=== PATIENT | male | born 1990 | race Caucasian/White ===

== ENCOUNTER 2023-12-20 07:20 | Outpatient (OUT) | payer OTHER, SELFPAY ==
[2023-12-20 07:53] LABS: Basophils Absolute Auto 0.1 10^3/uL (0.0-0.1); Basophils Percent Auto 0.9 % (0.2-2.0); Eosinophils Absolute Auto 0.5 10^3/uL (0.0-0.7); Eosinophils Percent Auto 6.3 % (0.9-7.0); Hematocrit 46.8 % (42.0-54.0); Immature Granulocytes Abs Auto 0.02 10^3/uL (0.00-0.03); Immature Granulocytes Pct Auto 0.3 % (0.0-0.5); Lymphocytes Absolute Auto 2.8 10^3/uL (1.2-3.8); Lymphocytes Percent Auto 36.3 % (20.5-60.0); Mean Corpuscular HGB Conc 34.2 g/dL (29.9-35.2); Mean Corpuscular Hemoglobin 30.4 pg (25.9-34.0); Mean Corpuscular Volume 88.8 fL (80.0-94.0); Mean Platelet Volume 9.9 fL (9.5-13.5); Monocytes Absolute Auto 0.6 10^3/uL (0.3-0.8); Neutrophils Absolute Auto 3.7 10^3/uL (1.4-6.5); Neutrophils Percent Auto 48.2 % (43.0-75.0); Platelet Count 279 10^3/uL (150-450); Red Blood Count 5.27 10^6/uL (4.70-6.10); Red Cell Distribution Width 11.9 % (11.0-15.0); White Blood Count 7.8 10^3/uL (4.0-11.0)
[2023-12-20 08:18] LABS: Alanine Aminotransferase 38 U/L (16-63); Albumin Level 3.8 g/dL (3.4-5.0); Alkaline Phosphatase 76 U/L (46-116); Anion Gap 10.5; Aspartate Amino Transferase 18 U/L (15-37); BUN Creatinine Ratio 14.9; Bilirubin Total 0.3 mg/dL (0.2-1.0); Calcium 9.3 mg/dL (8.5-10.1); Carbon Dioxide 29.9 mmol/L (21.0-32.0); Chloride 102 mmol/L (98-107); Chol HDL Ratio 5.2; Cholesterol 173 mg/dL (<=200); Estimated GFR (African America >60 (>=60); Estimated GFR (Non-African Ame >60 (>=60); Globulin 3.9 g/dL; Glucose 110 mg/dL (74-106); HDL Cholesterol 33 mg/dL (40-60); Potassium 4.4 mmol/L (3.5-5.1); Sodium 138 mmol/L (136-145); Thyroid Stimulating Hormone 1.154 uIU/mL (0.358-3.740); Total Protein 7.7 g/dL (6.4-8.2); Triglycerides 111 mg/dL (<=150); VLDL CHOLESTEROL 22.2 mg/dL
== END 2023-12-20 07:21 | disposition home or self-care (01) ==
LOC: LAB 07:23
PROVIDERS: PCP Nurse Practitioner; Visit Provider Nurse Practitioner
DX: Z00.00 Encounter for general adult medical examination without abnormal findings (principal)
CPT/HCPCS: 36415; 80053; 80061; 84443; 85025

== ENCOUNTER 2023-12-27 21:00 | Outpatient (OUT) | payer OTHER, SELFPAY ==
--- OUTSIDE RECORDS SUMMARY | 2023-12-29 08:19 | XMS_ITS | CCD ---
Author Organization [facility] Care Team Providers Care Car Pre Cooler Name Role Phone REBECCA RICHTER Attending Unavailable FRED MERCEDES Consulting Unavailable MISC, DOCTOR Primary Care Unavailable REBECCA RICHTER Admitting Unavailable REBECCA RICHTER Consulting Unavailable Haritha, CONDUCTOR AND ENGINEER-BC Kira Minaya Emergency Provider MD Sharon Thomas Primary Care Provider Kira Mg Attending Unavailable Kira Mg Admitting Unavailable Sharon Thomas Primary Care Unavailable Nancy Jj Attending Unavailable ParvizNancy Attending Unavailable ParvizNancy Attending Unavailable ParvizNancy Attending Unavailable ParvizNancy Attending Unavailable Medications Current Medications Medication Drug Class(es) Dates Sig (Normalized) Sig (Original) ibuprofen 800 mg oral tablet (1 source) Nonsteroidal Anti-inflammatory Drug Start: 06-04-2022 take 800 mg by mouth every six hours Ibuprofen Active 800 MG PO Q6H June 04, 2022 12:00am 24 hr venlafaxine 150 mg extended release oral capsule (1 source) Serotonin and Norepinephrine Reuptake Inhibitor Start: 06-04-2022 take 1 capsule by mouth once daily Venlafaxine (Effexor Xr) 150 mg capsule,extended release 24hr Active 150 MG PO Daily June 04, 2022 12:00am Problems Active Problems Problem Classification Problem Date Documented Da te Episodic/Chronic External cause codes: Fall (1 source) Fall on same level from slipping, tripping and stumbling without subsequent striking against object, initial encounter; Translations: [FALL SAME LVL SLIP NO STRK OBJ INIT] Onset: 04-18-2020 Other connective tissue disease (3 sources) Pain in left hand; Translations: [PAIN IN LEFT HAND] Onset: 04-14-2020 Episodic Superficial injury; contusion (2 sources) Contusion of left hand, initial encounter; Translations: [Abrasion, left thigh, initial encounter] Onset: 04-18-2020 Episodic Unclassified (1 source) Unspecified injury of unspecified ankle, initial encounter; Translations: [Unspecified injury of unspecified ankle, initial encounter] Onset: 06-04-2022 Past or Other Problems Problem Classification Problem Date Documented Da te Episodic/Chronic Unclassified (1 source) Ankle sprain and strain 06-04-2022 Results Test Name Value Interpretation Reference Range Facil ity Family Medicine Office/Clini c Noteon 12-10-2023 Family Medicine Office/Clinic Note Family Medicine Office/Clinic Note HPI Staff Celeste is a 33 year old male presenting for follow up ADHD and meds Has been on Adderall 7.5mg for ADHD _ stopped taking this around [place] Wellbutrin stopped about a month ago when he ran out of refills Stopped taking Adderall because he thought it was making his depression worse, he has been questioned if he has been dx with bipolar, and coworkers History of Present Illness pt presents today to discuss worsening depression, anxiety, sleep disturbances Review of Systems PHQ Score Initial Depression Screen Score: 0 SCORE Physical Exam Vitals & Measurements T: 36.4 ?C(Temporal Artery) HR: 102(Peripheral) RR: 22 BP: 142/86 SpO2: 96% HT: 68 in HT: 172.6 cm WT: 111.8 kg WT: 245.96 lb BMI: 37.53 General: alert, no acute distress ENMT: oral mucosa moist, no pharyngeal erythema or exudate Cardiovascular: regular rate and rhythm, normal peripheral perfusion Respiratory: Lungs CTA, respirations non labored Extremities: no deformity, no trauma Neurological: oriented x 4, LOC appropriate for age, CN II-XII intact, motor strength equal & normal bilaterally, speech normal Assessment/Plan 1. Bipolar disorder (F31.9: Bipolar disorder, unspecified) pt presents today for c/o worsening mood swings, depression, anxiety. discussed medication options. would like to try Abilify. pt will return in 4 weeks to monitor symptoms. pt is also due for annual wellness labs. RTC 4 weeks Ordered: aripiprazole, 5 mg = 1 tab(s), Oral, Daily, # 30 tab(s), Refills(s) 0, Pharmacy: [id number], 172.6, cm, 07/31/24 15:35:00 EDT, Height/Length Dosing, 111.8, kg, 12/10/23 15:35:00 EDT, Weight Dosing 2. Headache (R51.9: Headache, unspecified) see below 3. Daytime somnolence (R40.0: Somnolence) will order sleep study. pt will sleep 10 hours and still wake up tired. order sent to [facility] 4. Smoker (F17.200: Nicotine dependence, unspecified, uncomplicated) pt has been trying to quit but has a lot going on with sick at home Ordered: aripiprazole, 5 mg = 1 tab(s), Oral, Daily, # 30 tab(s), Refills(s) 0, [id number], 172.6, cm, 12/10/23 15:35:00 EDT, Height/Length Dosing, 111.8, kg, 12/10/23 15:35:00 EDT, Weight Dosing busPIRone, 10 mg = 1 tab(s), Oral, Daily, # 30 tab(s), Refills(s) 1, Pharmacy: [facility] #[id number], 115.4, kg, 12/09/22 15:15:00 EDT, Weight Dosing lisdexamfetamine, 30 mg, 1 cap(s), Oral, qAM, 30 cap(s), Refill(s) 0, [facility]pharm[facility] #[id number], 115.4, kg, 12/09/22 15:15:00 EDT, Weight Dosing 5. BMI 37.0-37.9, adult (Z68.37: Body mass index [BMI] 37.0-37.9, adult) bmi education given Ordered: aripiprazole, 5 mg = 1 tab(s), Oral, Daily, # 30 tab(s), Refills(s) 0, Pharmacy: [facility]/pharmacy #[id number], 172.6, cm, 12/10/23 15:35:00 EDT, Height/Length Dosing, 111.8, kg, 12/10/23 15:35:00 EDT, Weight Dosing Orders: amphetamine-dextroamphet amine, 7.5 mg, 1 tab(s), Oral, qAM, 30 tab(s), Refill(s) 0, [id number], 172.6, cm, 12/10/22 7:50:00 EDT, Height/Length Dosing, 115.4, kg, 12/09/22 15:15:00 EDT, Weight Dosing venlafaxine, 150 mg = 1 cap(s), Oral, Daily, 3 Refill(s), TAKE 1 CAPSULE(150 MG) BY MOUTH DAILY, # 90 cap(s), Refills(s) 3, Pharmacy: [facility]/pharmacy #[id number], 172.6, cm, 12/10/22 7:50:00 EDT, Height/Length Dosing, 115.4, kg, 12/09/22 15:15:00 EDT, Weight Dosing Follow-up No qualifying data available Problem List/Past Medical History Ongoing ADHD Cough Daytime somnolence WYATT (generalized anxiety disorder) Headache Left otitis media Historical No qualifying data Procedure/Surgical History T and A (tonsillectomy and adenoidectomy) postoperative education. Medications Abilify 5 mg Tab, 5 mg= 1 tab(s), Oral, Daily Allergies No Known Allergies Social History Alcohol Current, Beer, 1-2 times per year, Alcohol use interferes with work or home: No. Drinks more than intended: No. Others hurt by drinking: No. Ready to change: No. Household alcohol concerns: No., 12/09/2022 Tobacco 10 or more cigarettes (1/2 pack or more)/day in last 30 days, chew Tobacco Use:. Cigarettes, Oral, Household tobacco concerns: No., 12/10/2023 Family History Acute myocardial infarction: Mother. Anxiety: Mother. Cancer: Grandparent. Depression: Mother. Diabetes mellitus type 2: Mother. Normal [facility] Comment on above: Result Comment: Electronically Signed By : Nancy Melton\.guillermo\Date and Time Signed: 12/10/23 16:40 EDT Ambulatory Visit Summaryon 0 07-28-2023 Ambulatory Visit Summary CELESTE CEVALLOS :1990 Visit Date:07/28/2023 Ambulatory Visit Instructions Your Diagnosis Left otitis media Cough BMI 37.0-37.9, adult Class 1 obesity due to excess calories in adult Smoker Your Care Team Attending Physician - Nancy Melton Primary Care Physician - Nancy Melton This Is Your Medications List amoxicillin-clavulanate (Augmentin 875 mg oral tablet) amphetamine-dextroamphet amine (Adderall 7.5 mg oral tablet) busPIRone (busPIRone 10 mg Tab) lisdexamfetamine (Vyvanse 30 mg oral capsule) methylPREDNISolone (Medrol 4 mg Tab) venlafaxine (venlafaxine 150 mg Cap-ER) Procedures Performed T and A (tonsillectomy and adenoidectomy) postoperative education. Discharge Vitals Temperature (Temporal Artery) 37.5 ?C Heart Rate (Peripheral) 106 Respiratory Rate 18 Blood Pressure 132/80 Height 172.6 cm Height 68 in Weight 112.9 kg Weight 248.38 lb BMI 37.9 Medications What How Much When Why Instructions New amoxicillin-clavulanate (Augmentin 875 mg oral tablet) 1 Tablets By Mouth Every 12 hours Left otitis media Cough BMI 37.0-37.9, adult Class 1 obesity due to excess calories in adult Smoker Duration: 7 Days Pickup at [facility] #[id number] New methylPREDNISolone (Medrol 4 mg Tab) 1 Packets By Mouth As Directed Left otitis media Cough BMI 37.0-37.9, adult Class 1 obesity due to excess calories in adult Smoker Duration: 6 Days as directed on package labeling Pickup at [facility] #[id number] Unchanged amphetamine-dextroamphet amine (Adderall 7.5 mg oral tablet) 1 Tablets By Mouth Once a day (in the morning) Unchanged busPIRone (busPIRone 10 mg Tab) 1 Tablets By Mouth Every day ADHD WYATT (generalized anxiety disorder) BMI 38.0-38.9,adult Smoker Chews tobacco Unchanged lisdexamfetamine (Vyvanse 30 mg oral capsule) 1 Capsules By Mouth Once a day (in the morning) ADHD WYATT (generalized anxiety disorder) BMI 38.0-38.9,adult Smoker Chews tobacco Unchanged venlafaxine (venlafaxine 150 mg Cap-ER) 1 Capsules By Mouth Every day 3 Refill(s), TAKE 1 CAPSULE(150 MG) BY MOUTH DAILY Pharmacy Information [facility]/pharmacy #[id number]: [address], [place] [phone] Allergies No Known Allergies Problems Ongoing - Any problem that you are currently receiving treatment for. ADHD Cough WYATT (generalized anxiety disorder) Left otitis media Patient Survey You may receive a survey via text or e-mail asking about your office visit. Please share your experience with us by completing your survey. We appreciate your feedback and thank you for choosing us for your care. Mis Rivas [facility] Medicine Office/Clini c Noteon 07-28-2023 Family Medicine Office/Clinic Note HPI Staff Patient presents for acute visit. _Respiratory C/O: Duration: friday Body aches: yes Chest congestion: yes Chills: yes Cough: yes Ear complaints: yes Eye itching/watering: yes Fever: yes Headache: yescomes and goes Nasal congestion: yes Nasal discharge: yes clear Poor appetite: yes Reduced activity: yes Sinus pain/pressure: yes Sneezing: yes Sputum production: yesgreen Wheezing: yes Ill contacts: yes Remedies tried: theraflu, mucinex, acetaminophen based_vicks shower bombs _ flu: refused History of Present Illness pt presents today for c/o cough, fever, chills Review of Systems PHQ Score Initial Depression Screen Score: 2 SCORE Physical Exam Vitals & Measurements T: 37.5 ?C(Temporal Artery) HR: 106(Peripheral) RR: 18 BP: 132/80 SpO2: 98% HT: 68 in HT: 172.6 cm WT: 112.9 kg WT: 248.38 lb BMI: 37.9 General: alert, no acute distress ENMT: oral mucosa moist, no pharyngeal erythema or exudate Cardiovascular: regular rate and rhythm, normal peripheral perfusion Respiratory: Lungs CTA, respirations non labored Extremities: no deformity, no trauma Neurological: oriented x 4, LOC appropriate for age, CN II-XII intact, motor strength equal & normal bilaterally, speech normal Assessment/Plan 1. Left otitis media (H66.92: Otitis media, unspecified, left ear) lef tm and canal red. full of clear fluid will order medrol dose pack and augmentin Ordered: amoxicillin-clavulanate, = 1 tab(s), Oral, q12hr, X 7 day(s), # 14 tab(s), Refills(s) 0, [id number], 172.6, cm, 07/28/23 12:51:00 EDT, Height/Length Dosing, 112.9, kg, 07/28/23 12:51:00 EDT, Weight Dosing methylPREDNISolone, = 1 packet(s), Oral, As Directed, as directed on package labeling, X 6 day(s), # 21 tab(s), Refills(s) 0, [id number], 172.6, cm, 07/28/23 12:51:00 EDT, Height/Length Dosing, 112.9, kg, 07/28/23 12:51:00 EDT, Weight Dosing 2. Cough (R05.9: Cough, unspecified) cough congestion since Friday. flu and covid both negative Ordered: amoxicillin-clavulanate, = 1 tab(s), Oral, q12hr, X 7 day(s), # 14 tab(s), Refills(s) 0, [id number], 172.6, cm, 07/28/23 12:51:00 EDT, Height/Length Dosing, 112.9, kg, 07/28/23 12:51:00 EDT, Weight Dosing methylPREDNISolone, = 1 packet(s), Oral, As Directed, as directed on package labeling, X 6 day(s), # 21 tab(s), Refills(s) 0, [id number], 172.6, cm, 07/28/23 12:51:00 EDT, Height/Length Dosing, 112.9, kg, 07/28/23 12:51:00 EDT, Weight Dosing 3. BMI 37.0-37.9, adult (Z68.37: Body mass index [BMI] 37.0-37.9, adult) BMI education complete Ordered: amoxicillin-clavulanate, = 1 tab(s), Oral, q12hr, X 7 day(s), # 14 tab(s), Refills(s) 0, Pharmacy: [facility]/pharm[facility] #[id number], 172.6, cm, 07/28/23 12:51:00 EDT, Height/Length Dosing, 112.9, kg, 07/28/23 12:51:00 EDT, Weight Dosing methylPREDNISolone, = 1 packet(s), Oral, As Directed, as directed on package labeling, X 6 day(s), # 21 tab(s), Refills(s) 0, Pharmacy: [facility]/pharm[facility] #[id number], 172.6, cm, 07/28/23 12:51:00 EDT, Height/Length Dosing, 112.9, kg, 07/28/23 12:51:00 EDT, Weight Dosing 4. Class 1 obesity due to excess calories in adult (E66.09: Other obesity due to excess calories) see above Ordered: amoxicillin-clavulanate, = 1 tab(s), Oral, q12hr, X 7 day(s), # 14 tab(s), Refills(s) 0, Pharmacy: [facility]/pharm[id number], 172.6, cm, 07/28/23 12:51:00 EDT, Height/Length Dosing, 112.9, kg, 07/28/23 12:51:00 EDT, Weight Dosing methylPREDNISolone, = 1 packet(s), Oral, As Directed, as directed on package labeling, X 6 day(s), # 21 tab(s), Refills(s) 0, [id number], 172.6, cm, 07/28/23 12:51:00 EDT, Height/Length Dosing, 112.9, kg, 07/28/23 12:51:00 EDT, Weight Dosing 5. Smoker (F17.200: Nicotine dependence, unspecified, uncomplicated) consider not smoking Ordered: amoxicillin-clavulanate, = 1 tab(s), Oral, q12hr, X 7 day(s), # 14 tab(s), Refills(s) 0, [id number], 172.6, cm, 07/28/23 12:51:00 EDT, Height/Length Dosing, 112.9, kg, 07/28/23 12:51:00 EDT, Weight Dosing methylPREDNISolone, = 1 packet(s), Oral, As Directed, as directed on package labeling, X 6 day(s), # 21 tab(s), Refills(s) 0, Pharmacy: [facility]/pharm[facility] #[id number], 172.6, cm, 07/28/23 12:51:00 EDT, Height/Length Dosing, 112.9, kg, 07/28/23 12:51:00 EDT, Weight Dosing Follow-up No qualifying data available Problem List/Past Medical History Ongoing ADHD Cough WYATT (generalized anxiety disorder) Left otitis media Historical No qualifying data Procedure/Surgical History T and A (tonsillectomy and adenoidectomy) postoperative education. Medications Adderall 7.5 mg oral tablet, 7.5 mg= 1 tab(s), Oral, qAM, Not taking Augmentin 875 mg oral tablet, 1 tab(s), Oral, q12hr busPIRone 10 mg Tab, 10 mg= 1 tab(s), Oral, Daily, 1 refills, Not taking Medrol 4 mg Tab, 1 packet(s), Oral, As Directed venlafaxine 150 mg Cap-ER, 150 mg= 1 cap(s), Oral, Daily, 3 refills, Not taking Vyvanse 30 (more content not included)... [facility] Comment on above: Result Comment: Electronically Signed By : Nancy Melton\.br\Date and Time Signed: 07/28/23 13:15 EDT Provider Letteron 07-28-2023 Provider Letter (Inserted Image. Anyi ble to display) July 28, 2023 CELESTE CEVALLOS [address] [place] [id number] : 1990 To Whom It May Concern, Please excuse above patient from work. Date of Illness: From: _ Half a day 07-28-23 To: _ 07-29-23 May Return to Work On:07-30-23 Restrictions: _ Comments: _ Sincerely, Family Medicine [address] [address] [facility] XR ankle LT min 3V*on 2022 XR ankle LT min 3V* [facility] [place] [address] [place] [id number] XRay Report Signed Patient: Celeste Cevallos MR#: [id number] : 1990 Acct:[id number] Age/Sex: 32 / M ADM Date: 06/04/22 Loc: ER Room: Type: PRE ER Attending Dr: Copies to: MARK Capellan Ordering Provider: MARK Capellan Date of Service: 06/04/22 XR/XR ankle LT min 3V*: fall twisted ankle XR ankle LT min 3V* 06/04/2022 9:18 AM SIGNS AND SYMPTOMS: Left ankle pain medially PROTOCOL: Frontal, lateral, and oblique radiographs of the left ankle COMPARISON: None FINDINGS: The tibiotalar joint is preserved. There is no fracture or dislocation. No significant soft tissue swelling. The bones are in anatomic alignment. XR/XR ankle LT min 3V* IMPRESSION: No acute bony injury. Impression dictated by: Celeste Pack M.D.06/04/2022 9:48 AM Dictation Location: [place] [address] Transcribed By: [facility] 06/04/22947 Dictated By: Celeste Pack II, MD 06/04/22947 Signed By: 06/04/22947 [facility] XR HAND LT MIN 3Von 04-14-20 20 XR HAND LT MIN 3V PROCEDURE: XR HAND LT MIN 3V HISTORY: Pain ; acute left thumb pain and swelling after falling COMPARISON: None. FINDINGS: BONES:No fracture, acute abnormality, or significant arthropathy. SOFT TISSUES:No visible soft tissue swelling. EFFUSION:None visible. OTHER: Negative. IMPRESSION: 1. No acute bone abnormality or significant degenerative changes. Electronically authenticated by: FRED MERCEDES Date: 2020-04-14 13:03 Normal [facility] Vital Signs Date Time Vital Sign Value Performing Clinician Violette farias 06-04-2022 09:18-0500 Body height 175.26 cm [facility] Kira Mg Work Phone: [facility] 06-04-2022 09:18-0500 Body temperature 97.9 [degF] [facility] Kira Mg Work Phone: [facility] 06-04-2022 09:18-0500 Body weight 106.59 kg [facility] Kira Mg Work Phone: [facility] 06-04-2022 09:18-0500 Diastolic blood pressure 76 mm[Hg] CONDUCTOR AND ENGINEER-BC Kira Bullimore Work Phone: [facility] 06-04-2022 09:18-0500 Heart rate 96 /min CONDUCTOR AND ENGINEER-BC Kira Bullimore Work Phone: [facility] 06-04-2022 09:18-0500 Respiratory rate 20 /min CONDUCTOR AND ENGINEER-BC Kira Bullimore Work Phone: [facility] 06-04-2022 09:18-0500 SaO2% (BldA) [Mass fraction] 95 % [facility] Kira Bullimore Work Phone: [facility] 06-04-2022 09:18-0500 Systolic blood pressure 137 mm[Hg] CONDUCTOR AND ENGINEER-BC Kira Bullimore Work Phone: [facility] Encounters Encounter Date Encounter Type Care Provider Facility Start: 01-08-2024 ambulatory Nancy L Parviz Facility: [facility] [place] Start: 12-10-2023 End: 12-10-2023 ambulatory Nancy L Parviz Facility: [facility] Start: 12-08-2023 End: 12-08-2023 ambulatory Nancy L Parviz Facility:[facility] Start: 07-28-2023 End: 07-28-2023 ambulatory Nancy L Parviz Facility:[facility] [place] Start: 01-06-2023 End: 01-06-2023 ambulatory Nancy L Parviz Facility:[facility] Start: 06-04-2022 End: 06-04-2022 Emergency department patient visit Kira E Bullimore Facility:[facility] Start: 06-04-2022 End: 06-04-2022 Emergency department patient visit CONDUCTOR AND ENGINEER-BC Kira Bullimore Work Phone: [facility]-Emergency Room Work Phone: Start: 04-14-2020 End: 04-14-2020 Patient encounter procedure REBECCA ROBER Facility:[facility] Procedures Date Procedure Procedure Detail Performing Clinician Start: 06-04-2022 X-ray of left ankle CONDUCTOR AND ENGINEER -BC Kira Bullimore Work Phone: Plan of Treatment Date Care Activity Detail Author Patient Education Ankle Sprain ED [facility] Work Phone: Patient referral [facility] Work Phone: Payers Date Payer Category Payer Self-pay 2022 Unknown [id number] 2022 Worker's Compensation [id number] 2022 Unknown [id number] 1990 Unknown [id number] 2.16.84 [id number] 1990 Unknown [id number] 2.16.8 [id number] 1990 Unknown [id number] 2.16.8 [id number] 1990 Unknown [id number] 2.16.8 [id number] 1990 Unknown [id number] 2.16.8 [id number] 1990 Unknown [id number] 2.16.8 [id number] 1959 Unknown [id number] Unknown [id number] 2.16.8 [id number] Social History Date Type Detail Facility Start: 06-04-2022 Tobacco smoking stat [facility] Sm[facility] (finding) [facility] Start: 1990 Sex Assigned At Male F [facility] Evaluation note Note Date & Type Note Facility Evaluation note No assessment information availa ble [facility] Work Phone: Hospital Discharge instructions Note Date & Type Note Facility Hospital Discharge instructions Additional Instructions Rest ice elevate as needed Ibuprofen every 6 hours for discomfort Wear the Aircast when walking to help support and stabilize the ankle If feeling better perhaps wear the Aircast for about a week If not feeling better [facility] Return to the ER for worsening pain if your toes become cold white no blood circulation or any other concerns [facility] Work Phone: Summary Purpose Family History No Family History Records FoundNo Family History Records FoundNo Family History Records Found Advance Directives No Advanced Directives Records Found Advance Directive Response Recorded Date/ Time Advance Directives No June 04, 2022 9:56am Chief Complaint and Reason for Visit Chief Complaint L ankle injury ICO t ofts dairy Additional Source Comments (unrecognized sect ion and content) No Status Records FoundNo Status Records FoundNo Status Records Found INFORMATION SOURCE (unrecogn ized section and content) DATE CREATED AUTHOR 04/18/2020 [facility] DATE CREATED AUTHOR AUTHOR'S ORGANIZ ATION 06/06/2022 [facility] DATE CREATED AUTHOR AUTHOR'S ORGANIZ ATION 12/13/2023 [facility] Care Teams (unrecognized sec tion and content) Team Status: Inactive Member Role Status Dates SANGEETHA CapellanP- Emergency Provider Active Sharon Thomas MD Primary Care Provider Active Team Status: Active Member Role Status Dates Sharon Thomas MD Primary Care Provider Active Goals (unrecognized section and content) Goals may be documented in a n alternate section FOR RECORDS PERTAINING TO PATIENTS WHO ARE OR HAVE BEEN ENROLLED IN A CHEMICAL DEPENDENCY/SUBSTANCEABUSE PROGRAM, SOME INFORMATION MAY BE OMITTED. This clinical summary was aggregated from multiple sources. Caution should be exercised in using it in the provision of clinical care. This summary normalizes information from multiple sources, and as a consequence, information in this document may materially change the coding, format and clinical context of patient data. In addition, data may be omitted in some cases. CLINICAL DECISIONS SHOULD BE BASED ON THE PRIMARY CLINICAL RECORDS. [employer] provides no warranty or guarantee of the accuracy or completeness of information in this document.
== END 2023-12-27 21:01 | disposition home or self-care (01) ==
LOC: SLEEP 12-29 08:02
PROVIDERS: PCP Nurse Practitioner; Visit Provider Nurse Practitioner
DX: G47.33 Obstructive sleep apnea (adult) (pediatric) (principal)
CPT/HCPCS: 95810

== ENCOUNTER 2024-01-27 20:36 | Outpatient (OUT) | payer OTHER, SELFPAY ==
--- OUTSIDE RECORDS SUMMARY | 2024-01-27 20:38 | XMS_ITS | CCD ---
Author Organization [facility] Care Team Providers Care Part Maker Name Role Phone REBECCA RICHTER Attending Unavailable FRED MERCEDES Consulting Unavailable MISC, DOCTOR Primary Care Unavailable REBECCA RICHTER Admitting Unavailable REBECCA RICHTER Consulting Unavailable Haritha, DATA DELIVERABLES MANAGER-BC Kira Minaya Emergency Provider MD Sharon Thomas [...] for ADHD _ stopped taking this around [place] Wellbutrin stopped about a month ago when [...] # 30 tab(s), Refills(s) 0, Pharmacy: [id number], 172.6, cm, 07/31/24 15:35:00 EDT, Height/Length Dosing, 111.8, kg, 12/10/23 15:35:00 EDT, Weight Dosing 2. Headache (R51.9: Headache, unspecified) see below 3. Daytime somnolence (R40.0: Somnolence) will order sleep study. pt will sleep 10 hours and still wake up tired. order sent to [facility] 4. Smoker (F17.200: Nicotine dependence, unspecified, uncomplicated) pt has been trying to quit but has a lot going on with sick at home Ordered: aripiprazole, 5 mg = 1 tab(s), Oral, Daily, # 30 tab(s), Refills(s) 0, [id number] 172.6, cm, 12/10/23 15:35:00 EDT, Height/Length Dosing, 111.8, kg, 12/10/23 15:35:00 EDT, Weight Dosing busPIRone, 10 mg = 1 tab(s), Oral, Daily, # 30 tab(s), Refills(s) 1, Pharmacy: [facility] #[id number], 115.4, kg, 12/09/22 15:15:00 EDT, Weight Dosing lisdexamfetamine, 30 mg, 1 cap(s), Oral, qAM, 30 cap(s), Refill(s) 0, [facility][id number], 115.4, kg, 12/09/22 15:15:00 EDT, Weight Dosing 5. BMI 37.0-37.9, adult (Z68.37: Body mass index [BMI] 37.0-37.9, adult) bmi education given Ordered: aripiprazole, 5 mg = 1 tab(s), Oral, Daily, # 30 tab(s), Refills(s) 0, Pharmacy: [facility] #[id number], 172.6, cm, 12/10/23 15:35:00 EDT, Height/Length [...] DAILY, # 90 cap(s), Refills(s) 3, Pharmacy: [id number], 172.6, cm, 12/10/22 7:50:00 EDT, Height/Length [...] Mother. Diabetes mellitus type 2: Mother. Normal [facility] Comment on above: Result Comment: Electronically Signed [...] adult Smoker Duration: 7 Days Pickup at [id number] New methylPREDNISolone (Medrol 4 mg Tab) 1 Packets By Mouth As Directed Left otitis media Cough BMI 37.0-37.9, adult Class 1 obesity due to excess calories in adult Smoker Duration: 6 Days as directed on package labeling Pickup at [facility] #[id number] Unchanged amphetamine-dextroamphet amine (Adderall 7.5 mg [...] CAPSULE(150 MG) BY MOUTH DAILY Pharmacy Information [facility] #[id number]: [address], [place] [phone] Allergies No Known [...] choosing us for your care. Mis Rivas [facility] Medicine Office/Clini c Noteon 07-28-2023 Family Medicine [...] day(s), # 21 tab(s), Refills(s) 0, [id number], 172.6, cm, 07/28/23 12:51:00 EDT, Height/Length Dosing, 112.9, kg, 07/28/23 12:51:00 EDT, Weight Dosing 2. Cough (R05.9: Cough, unspecified) cough congestion since Friday. flu and covid both negative Ordered: amoxicillin-clavulanate, = 1 tab(s), Oral, q12hr, X 7 day(s), # 14 tab(s), Refills(s) 0, [id number], 172.6, cm, 07/28/23 12:51:00 EDT, Height/Length Dosing, 112.9, kg, 07/28/23 12:51:00 EDT, Weight Dosing methylPREDNISolone, = 1 packet(s), Oral, As Directed, as directed on package labeling, X 6 day(s), # 21 tab(s), Refills(s) 0, [id number], 172.6, cm, 07/28/23 12:51:00 EDT, Height/Length Dosing, 112.9, kg, 07/28/23 12:51:00 EDT, Weight Dosing 3. BMI 37.0-37.9, adult (Z68.37: Body mass index [BMI] 37.0-37.9, adult) BMI education complete Ordered: amoxicillin-clavulanate, = 1 tab(s), Oral, q12hr, X 7 day(s), # 14 tab(s), Refills(s) 0, Pharmacy: [facility] #[id number], 172.6, cm, 07/28/23 12:51:00 EDT, Height/Length Dosing, 112.9, kg, 07/28/23 12:51:00 EDT, Weight Dosing methylPREDNISolone, = 1 packet(s), Oral, As Directed, as directed on package labeling, X 6 day(s), # 21 tab(s), Refills(s) 0, Pharmacy: [id number], 172.6, cm, 07/28/23 12:51:00 EDT, Height/Length Dosing, 112.9, kg, 07/28/23 12:51:00 EDT, Weight Dosing 4. Class 1 obesity due to excess calories in adult (E66.09: Other obesity due to excess calories) see above Ordered: amoxicillin-clavulanate, = 1 tab(s), Oral, q12hr, X 7 day(s), # 14 tab(s), Refills(s) 0, Pharmacy: [id number], 172.6, cm, 07/28/23 12:51:00 EDT, Height/Length Dosing, 112.9, kg, 07/28/23 12:51:00 EDT, Weight Dosing methylPREDNISolone, = 1 packet(s), Oral, As Directed, as directed on package labeling, X 6 day(s), # 21 tab(s), Refills(s) 0, [id number], 172.6, cm, 07/28/23 12:51:00 EDT, Height/Length Dosing, 112.9, kg, 07/28/23 12:51:00 EDT, Weight Dosing 5. Smoker (F17.200: Nicotine dependence, unspecified, uncomplicated) consider not smoking Ordered: amoxicillin-clavulanate, = 1 tab(s), Oral, q12hr, X 7 day(s), # 14 tab(s), Refills(s) 0, [id number], 172.6, cm, 07/28/23 12:51:00 EDT, Height/Length Dosing, 112.9, kg, 07/28/23 12:51:00 EDT, Weight Dosing methylPREDNISolone, = 1 packet(s), Oral, As Directed, as directed on package labeling, X 6 day(s), # 21 tab(s), Refills(s) 0, Pharmacy: [id number], 172.6, cm, 07/28/23 12:51:00 EDT, Height/Length [...] taking Vyvanse 30 (more content not included)... [facility] Comment on above: Result Comment: Electronically Signed By : Nancy Melton\.br\Date and Time Signed: 07/28/23 13:15 EDT Provider Letteron 07-28-2023 Provider Letter (Inserted Image. Anyi ble to display) July 28, 2023 CELESTE CEVALLOS [address] [place] [id number] : 1990 To Whom It May Concern, Please excuse above patient from work. Date of Illness: From: _ Half a day 07-28-23 To: _ 07-29-23 May Return to Work On:07-30-23 Restrictions: _ Comments: _ Sincerely, Family Medicine [address] [address] [facility] XR ankle LT min 3V*on 2022 XR ankle LT min 3V* [facility] [place] [address] [place] [id number] XRay Report Signed Patient: Celeste Cevallos MR#: [id number] : 1990 Acct:[id number] Age/Sex: 32 / M ADM Date: 06/04/22 [...] Celeste Pack M.D.06/04/2022 9:48 AM Dictation Location: [place] [address] Transcribed By: [facility] 06/04/[address]47 Dictated By: Celeste Pack II, MD 06/04/22947 Signed By: 06/04/[address] [facility] XR HAND LT MIN 3Von 04-14-20 [...] by: FRED MERCEDES Date: 2020-04-14 13:03 Normal [facility] Vital Signs Date Time Vital Sign Value Performing Clinician Violette farias 06-04-2022 09:18-0500 Body height 175.26 cm [facility] Kira Mg Work Phone: [facility] 06-04-2022 09:18-0500 Body temperature 97.9 [degF] [facility] Kira Mg Work Phone: [facility] 06-04-2022 09:18-0500 Body weight 106.59 kg [facility] Kira Mg Work Phone: [facility] 06-04-2022 09:18-0500 Diastolic blood pressure 76 mm[Hg] DATA DELIVERABLES MANAGER-BC Kira Bullimore Work Phone: [facility] 06-04-2022 09:18-0500 Heart rate 96 /min DATA DELIVERABLES MANAGER-BC Kira Bullimore Work Phone: [facility] 06-04-2022 09:18-0500 Respiratory rate 20 /min DATA DELIVERABLES MANAGER-BC Kira Bullimore Work Phone: [facility] 06-04-2022 09:18-0500 SaO2% (BldA) [Mass fraction] 95 % [facility]- Kira Bullimore Work Phone: [facility] 06-04-2022 09:18-0500 Systolic blood pressure 137 mm[Hg] DATA DELIVERABLES MANAGER-BC Kira Bullimore Work Phone: [facility] Encounters Encounter Date Encounter Type Care Provider Facility Start: 01-08-2024 ambulatory Nancy L Parviz Facility: [facility] Start: 12-10-2023 End: 12-10-2023 ambulatory Nancy L Parviz Facility: [facility] Start: 12-08-2023 End: 12-08-2023 ambulatory Nancy L Parviz Facility:[facility] Start: 07-28-2023 End: 07-28-2023 ambulatory Nancy L Parviz Facility:[facility] Start: 01-06-2023 End: 01-06-2023 ambulatory Nancy L Parviz Facility:[facility] Start: 06-04-2022 End: 06-04-2022 Emergency department patient visit Kira E Bullimore Facility:[facility] Start: 06-04-2022 End: 06-04-2022 Emergency department patient visit DATA DELIVERABLES MANAGER-BC Kira Bullimore Work Phone: [facility] Work Phone: Start: 04-14-2020 End: 04-14-2020 Patient encounter procedure REBECCA ROBER Facility:[facility] Procedures Date Procedure Procedure Detail Performing Clinician Start: 06-04-2022 X-ray of left ankle DATA DELIVERABLES MANAGER -BC Kira Bullimore Work Phone: Plan of Treatment Date Care Activity Detail Author Patient Education Ankle Sprain ED [facility] Work Phone: Patient referral [facility] Work Phone: Payers Date Payer Category Payer Self-pay 2022 Unknown [id number] 2022 Worker's Compensation [id number] 2022 Unknown [id number] 1990 Unknown [id number] 2.16.84 [id number] 1990 Unknown [id number] 2.16.8 [id number] 1990 Unknown [id number] 2.16.8 [id number] 1988 Unknown [id number] 2.16.8 [id number] 1988 Unknown [id number] 2.16.8 [id number] 1988 Unknown [id number] 2.16.8 [id number] 1959 Unknown [id number] Unknown [id number] 2.16.8 [id number] Social History Date Type Detail Facility Start: 06-04-2022 Tobacco smoking stat [facility] Smoker (finding) [facility] Start: 1990 Sex Assigned At Male F [facility] Evaluation note Note Date & Type Note Facility Evaluation note No assessment information availa ble [facility] Work Phone: Hospital Discharge instructions Note Date & Type Note Facility Hospital Discharge instructions Additional Instructions Rest ice elevate as needed Ibuprofen every 6 hours for discomfort Wear the Aircast when walking to help support and stabilize the ankle If feeling better perhaps wear the Aircast for about a week If not feeling [facility] or Dr. Hernandez Return to the ER for worsening pain if your toes become cold white no blood circulation or any other concerns [facility] Work Phone: Summary Purpose Family History [...] DATE CREATED AUTHOR AUTHOR'S ORGANIZ ATION 06/06/2022 [facility] DATE CREATED AUTHOR AUTHOR'S ORGANIZ ATION 12/13/2023 [facility] Care Teams (unrecognized sec tion and content) [...] BE BASED ON THE PRIMARY CLINICAL RECORDS. [employer] provides no warranty or guarantee of the accuracy or completeness of information in this document.
== END 2024-01-27 20:37 | disposition home or self-care (01) ==
LOC: SLEEP 20:36
PROVIDERS: PCP Nurse Practitioner; Visit Provider Nurse Practitioner
DX: G47.33 Obstructive sleep apnea (adult) (pediatric) (principal)
CPT/HCPCS: 95811